=== PATIENT | male | born 1945 | race Caucasian/White ===

== ENCOUNTER 2021-11-19 13:49 | Emergency (ER) | payer MEDICARE, OTHER ==
[2021-11-19] MEDS ORDERED: Iopamidol 755 Mg/ML 100 ML Bottle IV SCH (15:30)
[2021-11-19] MEDS ORDERED: Sodium Chloride 0.9% 100 ML IV SCH (15:30)
[2021-11-19] MEDS ORDERED: Aspirin 81 MG Tab.Chew PO ONE (18:03)
[2021-11-19] MEDS ORDERED: Clopidogrel 75 MG Tab PO ONE (18:03)
== END 2021-11-19 19:41 ==
LOC: JP.ED 13:49
DX: I65.03 Occlusion and stenosis of bilateral vertebral arteries (principal); I10 Essential (primary) hypertension; Z79.82 Long term (current) use of aspirin; Z79.899 Other long term (current) drug therapy
CPT/HCPCS: 36415; 70450; 70496; 70498; 71045; 71045-26; 72125; 80053; 80307; 85025; 85730; 93005; 99285-25; A9270-GY; Q9967